=== PATIENT | male | born 1960 | race Two or more races ===

== ENCOUNTER 2018-10-03 10:18 | Emergency (ER) | payer BC ==
[~2018-10-03] VITALS: Ht 162.6 cm; Wt 77.1 kg
[2018-10-03 10:24] VITALS: BP 145/84
[2018-10-04] MEDS ORDERED: GLIP5TAB12 PO (20:14)
[2018-10-04] MEDS ORDERED: METF-370 PO (20:14)
[2018-10-04] MEDS ORDERED: LOSA25TA38 PO (20:14)
[2018-10-04] MEDS ORDERED: MET25T PO (20:14)
== END 2018-10-03 12:12 | disposition home or self-care (01) ==
LOC: ER 10:18
DX: S00.81XA Abrasion of other part of head, initial encounter (principal); E11.9 Type 2 diabetes mellitus without complications; I10 Essential (primary) hypertension; W22.8XXA Striking against or struck by other objects, initial encounter; Y93.89 Activity, other specified; Y99.8 Other external cause status; Y92.89 Other specified places as the place of occurrence of the external cause
CPT/HCPCS: 70450

== ENCOUNTER 2018-10-04 09:20 | Inpatient (IN) | payer BC ==
[~2018-10-04] VITALS: Ht 160 cm; Wt 80.6 kg
[2018-10-04 10:17] LABS: Basophils # (auto) 0.1 uL; Eosinophils # (auto) 0.4 uL; Eosinophils % (auto) 3.3 % (0.0-7.0); Hematocrit 42.5 % (41.0-53.0); Lymphocytes # (auto) 2.3 uL; Lymphocytes % (auto) 21.9 % (10.0-50.0); Mean Corpuscular Hemoglobin 30.1 pg (28.0-32.0); Mean Corpuscular Hgb Conc. 32.9 g/dL (32.0-36.0); Mean Corpuscular Volume 91.6 fL (80.0-100.0); Monocytes # (auto) 0.7 uL; Monocytes % (auto) 6.3 % (0.0-12.0); Neutrophils # (auto) 7.1 uL; Neutrophils % (auto) 67.5 % (37.0-80.0); Platelet Count (auto) 206 10^3/uL (140-450); Red Blood Cells 4.64 10^6/uL (4.5-5.90); Red Cell Distribution Width 14.1 % (11.8-14.3); White Blood Cell 10.6 10^3/uL (4.4-10.8)
[2018-10-04 10:50] LABS: Urine Bacteria NONE SEEN /hpf (None Seen); Urine Blood Negative /uL (Negative); Urine Mucus FEW (None Seen); Urine Specific Gravity 1.023 (1.001-1.035); Urine WBC 1 /hpf (0 - 3)
[2018-10-04 11:03] LABS: Albumin 4.1 g/dL (3.4-5.0); BUN/Creatinine Ratio 22.2; Calcium 8.7 mg/dL (8.5-10.1); Potassium 4.1 mmol/L (3.5-5.1)
[2018-10-04 11:06] LABS: Bilirubin, Total 0.5 mg/dL (0.2-1.0)
[2018-10-04 13:04] LABS: Magnesium 2.2 mg/dL (1.6-2.6)
[2018-10-04 13:13] LABS: INR 0.95 (0.9-1.15); Partial Thromboplastin Time 25.3 sec (23.64-32.05)
[2018-10-04] MEDS ORDERED: GADOPENTETATE DIMEGLUMINE (10MMOL/20 ML) VIAL IV ONE (15:19)
[2018-10-04] MEDS ORDERED: NITROGLYCERIN 0.4 MG SL TAB SL PRN (18:15)
[2018-10-04] MEDS ORDERED: PROMETHAZINE HCL 25 MG/ML 1ML IV PRN (18:15)
[2018-10-04] MEDS ORDERED: MORPHINE SULF INJ 2 MG/ML SYRINGE 1ML IV PRN (18:15)
[2018-10-04] MEDS ORDERED: LACTULOSE 20Gm/30ML SOLN PO PRN (18:15)
[2018-10-04] MEDS ORDERED: traMADol HCL 50 MG TAB PO PRN (18:15)
[2018-10-04] MEDS ORDERED: ACETAMINOPHEN 500 MG TAB PO PRN (18:15)
[2018-10-04] MEDS ORDERED: TEMAZEPAM 15 MG CAP PO PRN (18:15)
[2018-10-04] MEDS ORDERED: DEXTROSE (50%) 50ML SYRG IV PRN (18:15)
[2018-10-04] MEDS: SODIUM CHLORIDE 0.9% 1,000 ML IV SCH (18:24)
[2018-10-04 19:32] VITALS: BP 156/88
--- NOTE | 2018-10-04 19:32 | NUR ---
Telemetry admit from ER [facility] admitted to Telemetry unit after SBAR received. Patient oriented to Christian barfield RN, unit, room, bed, and unit policies regarding patient care and visiting hours. Patient now on continuous telemetry monitoring, tele box # 9 and telemetry reading on arrival to unit is nsr. Patient placed on bedside oxygen, weighed by bedscale and encouraged to call if they need something. All questions and concerns addressed, patient verbalized understanding.
[2018-10-04] MEDS ORDERED: MET25T PO (20:14)
[2018-10-04] MEDS ORDERED: GLIP-115 PO (20:14)
[2018-10-04] MEDS ORDERED: LOSA25TA40 PO (20:14)
[2018-10-04] MEDS ORDERED: METF-370 PO (20:14)
[2018-10-04 22:00] VITALS: BP 156/88
[2018-10-04] MEDS: InsuLIN REG 1unit/0.01ml Soln (100units/ml) SC SCH (22:00)
[2018-10-04] MEDS: ACCU-CHEK COMFORT CURVE STRIP VI SCH (22:00)
[2018-10-04] MEDS: ATORVASTATIN 20 MG TAB PO SCH (23:13)
[2018-10-05] VITALS (7 sets, daily range): BP systolic 132–153; BP diastolic 80–98
[2018-10-05] MEDS: ACCU-CHEK COMFORT CURVE STRIP VI SCH ×4 (07:00→22:00)
[2018-10-05] MEDS: InsuLIN REG 1unit/0.01ml Soln (100units/ml) SC SCH ×4 (07:00→22:00)
--- NOTE | 2018-10-05 07:20 | NUR ---
Opening Shift Note Assumed care of patient, awake and alert. No S/S of distress/SOB or pain. Instructed on POC and to call for assist PRN, will continue to monitor for changes Q1hr and PRN.
[2018-10-05] MEDS: SODIUM CHLORIDE 0.9% 1,000 ML IV SCH ×2 (07:36→19:10)
[2018-10-05] MEDS: ENOXAPARIN SOD 40 MG/0.4 ML SYRINGE SC SCH (09:20)
[2018-10-05] MEDS: METOPROLOL SUCCINATE XL 50 MG TAB PO SCH (09:21)
[2018-10-05] MEDS: ASPirin 81 mg TAB PO SCH (09:21)
[2018-10-05] MEDS: PANTOPRAZOLE 40 MG TAB PO SCH (09:21)
[2018-10-05] MEDS: LOSARTAN POTASSIUM 25 MG TAB PO SCH (09:21)
[2018-10-05] MEDS: ATORVASTATIN 20 MG TAB PO SCH (22:32)
[2018-10-06 05:00] VITALS: BP 138/82
[2018-10-06] MEDS: InsuLIN REG 1unit/0.01ml Soln (100units/ml) SC SCH ×2 (07:00→11:30)
[2018-10-06] MEDS: ACCU-CHEK COMFORT CURVE STRIP VI SCH ×2 (07:00→11:37)
[2018-10-06] MEDS: SODIUM CHLORIDE 0.9% 1,000 ML IV SCH (07:40)
[2018-10-06 07:56] VITALS: BP 146/86
[2018-10-06] MEDS: ENOXAPARIN SOD 40 MG/0.4 ML SYRINGE SC SCH (10:00)
[2018-10-06] MEDS: LOSARTAN POTASSIUM 25 MG TAB PO SCH (10:12)
[2018-10-06] MEDS: ASPirin 81 mg TAB PO SCH (10:12)
[2018-10-06] MEDS: PANTOPRAZOLE 40 MG TAB PO SCH (10:13)
[2018-10-06] MEDS: METOPROLOL SUCCINATE XL 50 MG TAB PO SCH (10:13)
[2018-10-06 11:27] VITALS: BP 133/80
[2018-10-06 16:55] VITALS: BP 130/69
[2018-10-06 17:05] VITALS: BP 110/64
--- NOTE | 2018-10-06 18:10 | NUR ---
PATIENT DISCHARGED HOME WITH FAMILY. ALL IV ACCESS DISCONTINUED. ALL DISCHARGE INSTRUCTIONS GIVEN. ALL DISCHARGE PAPERWORK SIGNED.
== END 2018-10-06 18:11 | disposition home or self-care (01) | DRG 149 ==
LOC: ER 09:20 → TELE 18:13 → TELE-WESTW 19:32
PROVIDERS: ADMIT Internal Medicine; ATTEND Internal Medicine Pulmonary Disease
DX: H81.10 Benign paroxysmal vertigo, unspecified ear (principal); E11.42 Type 2 diabetes mellitus with diabetic polyneuropathy; E78.5 Hyperlipidemia, unspecified; I10 Essential (primary) hypertension; D18.09 Hemangioma of other sites; I67.2 Cerebral atherosclerosis; K59.00 Constipation, unspecified; S00.81XA Abrasion of other part of head, initial encounter; W18.39XA Other fall on same level, initial encounter; Y93.89 Activity, other specified; Z83.3 Family history of diabetes mellitus; Z82.49 Family history of ischemic heart disease and other diseases of the circulatory system; Y92.091 Bathroom in other non-institutional residence as the place of occurrence of the external cause
CPT/HCPCS: 36415; 70545; 70553; 71045; 80053; 81001; 82550; 82962; 83036; 83735; 83880; 84484; 85025; 85379; 85610; 85652; 85730; 86141; 93005; 93306; 93886; 94761; 96360; G0378